=== PATIENT | male | born 1965 | race Caucasian/White ===

== ENCOUNTER 2016-09-05 11:03 | Emergency (ER) | payer OTHER ==
--- NOTE | 2016-09-05 12:42 | DIAGNOSTIC IMAGING REPORT ---
PROCEDURE: XR CHEST 2 VIEW INDICATION: SHORTNESS OF BREATH TECHNIQUE: PA and lateral view. COMPARISON: None. FINDINGS: Lungs are clear. Cardiovascular structures are normal. Mild degenerative changes of the spine. IMPRESSION: 1. Negative chest.
--- NOTE | 2016-09-05 13:32 | ED CLINICAL REPORT ---
Clinical Report - Physicians/Mid Levels [facility] [address], [place] [address] 09/05/2016 11:06 Patient: PAVAN GOODRICH Time Seen: 11:12. Arrived- By private vehicle. Historian- patient. HISTORY OF PRESENT ILLNESS Chief Complaint: DYSPNEA and HISTORY OF ASTHMA. This started about 1 year ago intermittently, worse / exacerbated for the past several weeks and is still present. It was gradual in onset and has been waxing/waning. The dyspnea is described as moderate. The dyspnea is worsened by walking and exertion and is improved by rest (inhalers help, but he has run out; his symptoms were improved when he lived in a atmospheric drier tender climate (in [place] The patient has had a mild cough productive of yellow sputum . No blood tinged sputum or frankly bloody sputum. He has had scant amounts of sputum and wheezing. No fever, chills, calf pain, foot swelling or orthopnea. No paroxysmal nocturnal dyspnea. (Pt sts last year at about this time he began having wheezing, seen at [facility] and was told to get a chest x ray, no meds or diagnosis given, pt never got x ray, sts over the winter it went away and now has returned again with the summer. Pt is in no resp distress)). Similar symptoms previously: Chronically. Recent medical care: The patient was seen recently in a clinic. Seen for similar symptoms. REVIEW OF SYSTEMS No muscle aches, sore throat, nasal discharge, sinus drainage or nausea. No vomiting, abdominal pain, diarrhea, black stools or bloody stools. No headache, fainting episodes, difficulty with urination, excessive urination or skin rash. No enlarged lymph nodes. All systems otherwise negative, except as recorded above. PAST HISTORY Asthma suspected. PCP: [facility] K[facility] (Dr Wei). No history of renal failure, congestive heart failure, deep venous thrombosis or pulmonary embolism. Gastroesophageal reflux. Anxiety. Depression. Surgeries: Appendectomy. Medications: Zantac Oral. TraZODone HCl Oral. Citalopram Hydrobromide Oral. Allergies: No Known Drug Allergy. SOCIAL HISTORY Smoker- current status unknown. History of drug use takes marijuana po; He has a long history of cocaine and other drug use (no heroin) - but none for over 1 year: marijuana. Is a recovering addict. ADDITIONAL NOTES The nursing notes have been reviewed. PHYSICAL EXAM Vital Signs: 09/05/2016 11:15 BP: 157/91. HR: 65. RR: 18. O2 saturation: 96%. Temp: 97.5 F. Appearance: Alert. No acute distress. Eyes: Eyes normal inspection. No pale conjunctivae or scleral icterus. ENT: Pharynx normal. Uvula midline. No pharyngeal erythema. Neck: Normal inspection. No jugular venous distention. Neck supple. CVS: Normal heart rate and rhythm. Heart sounds normal. Pulses normal. Respiratory: No respiratory distress. Expiratory moderate bilateral wheezes present. No retractions, decreased air movement, prolonged expiration, splinting or rales. No rhonchi. Abdomen: Soft and nontender. No organomegaly. Obese. Back: Normal inspection. Skin: Skin warm and dry. Normal skin color. No rash. Normal skin turgor. Extremities: Extremities exhibit normal ROM. No calf tenderness. No lower extremity edema. Neuro: Oriented X 3. No motor deficit. LABS, X-RAYS, AND EKG EKG: EKG time: (11:41). Normal sinus rhythm. Rate: 60. Normal P waves. Normal TRIP. Normal QRS complex. Normal axis. Left axis deviation. Non-specific ST segment / T wave abnormalities. Rhythm Strip #1: Normal sinus rhythm. Regular rhythm. Narrow QRS complexes. No ectopy. Chest X-ray: No acute disease. Normal lung markings present. Normal heart size. Mediastinum normal. No infiltrate. Views: PA and lateral. Technique: good. The X-rays were interpreted contemporaneously by me. Laboratory Tests: UA-Culture if indicated: (MANAV: 09/05/2016 13:10) ( MsgRcvd 09/05/2016 13:34) Final results Test Result Flag Units (Reference) URINE COLOR YELLOW URINE APPEARANCE CLEAR URINE GLUCOSE NEGATIVE (NEGATIVE) URINE BILIRUBIN NEGATIVE (NEGATIVE) URINE KETONE TRACE (NEGATIVE) URINE SPECIFIC GRAVITY >= 1.030 (1.010-1.030) URINE PH 6.0 (5.0-8.0) URINE PROTEIN TRACE (NEGATIVE) URINE UROBILINOGEN 0.2 EU/dL (0.2-1.0) URINE NITRITE NEGATIVE (NEGATIVE) URINE BLOOD NEGATIVE (NEGATIVE) URINE LEUK ESTERASE NEGATIVE (NEGATIVE) URINE RBC NONE SEEN rbc/hpf (0-1) URINE WBC 1-3 wbc/hpf (0-1) URINE EPITHELIAL CELLS 0-1 EPI/hpf (0-5) URINE BACTERIA FEW (1+) (NONE SEEN) URINE COMMENT CULT NOT INDICATED URINE CULTURES ARE SET-UP BASED ON THE FOLLOWING CRITERIA:POSITIVE NITRITEPOSITIVE LEUKOCYTE ESTERASEGREATER THAN 10 WHITE BLOOD CELLSMODERATE (2+) OR GREATER BACTERIA CBC w Diff: (MANAV: 09/05/2016 11:45) ( MsgRcvd 09/05/2016 11:58) Final results Test Result Flag Units (Reference) WHITE BLOOD COUNT 9.8 K/uL (4.5-11.5) RED BLOOD COUNT 5.65 M/uL (4.50-5.90) HEMOGLOBIN 16.5 gm/dL (13.5-17.5) HEMATOCRIT 48.1 % (41.0-53.0) MEAN CELL VOLUME 85 fL (80-100) MEAN CORPUSCULAR HGB 29 pg (26-34) MEAN CORPUSCULAR HGB CONC 34 g/dL (31-37) RED CELL DISTRIBUTION WIDTH 13.1 % (11.6-14.8) PLATELET COUNT 224 K/uL (150-400) NEUTROPHIL % 55.2 % (50-75) LYMPH % 21.9 L % (25-40) MONO % 5.7 % (3-14) EOSINOPHIL % 16.3 H % (0-4) BASOPHIL % 0.9 % (0-2) PT with INR: (MANAV: 09/05/2016 11:45) ( MsgRcvd 09/05/2016 12:03) Final results Test Result Flag Units (Reference) INR 1.0 (0.8-1.2) Low Intensity Therapy: INR 1.5-2.0 PT range 18.5-23.1Mod.Intensity Therapy: INR 2.0-3.0 PT range 23.1-31.5High Intensity Therapy: INR 2.5-3.5 PT range 27.4-35.5High Intensity Therapy 2: INR 3.0-4.0 PT range 31.5-39.3 Urine Drug Screen: (MANAV: 09/05/2016 13:10) ( [facility] [place]:39) Final results Test Result Flag Units (Reference) AMPHETAMINE/METHAMPHETAMINE NEGATIVE (NEGATIVE) BARBITURATE NEGATIVE (NEGATIVE) BENZODIAZEPINE NEGATIVE (NEGATIVE) CANNABINOID POSITIVE H (NEGATIVE) COCAINE NEGATIVE (NEGATIVE) ECSTASY POSITIVE H (NEGATIVE) METHADONE NEGATIVE (NEGATIVE) OPIATE NEGATIVE (NEGATIVE) The urine drug screen is a qualitative screening test fordrug overdose and abuse. All screen results should beconsidered as presumptive.Drugs screened for are as follows:BenzodiazepinesCocaineAmphetamines/MetamphetaminesTHC (Tetrahydrocannabinol)OpiatesBarbituratesEcstasyMethadonePositive results are unconfirmed. For confirmation, notifythe lab for the specimen to be sent to the reference lab.All confirmations must be performed by a differentmethodology.The ingestion of natural herbal and plant productscontaining Ephedra/Ephedra metabolites can produce in urineone or more substances capable of cross reacting withamphetamine/methamphetamine immunoassays. These testsprovide a preliminary result only. A more specificalternative chemical method must be used to obtain aconfirmed analytical result. BNP: (MANAV: 09/05/2016 11:45) ( [facility] [place] 09/05/2016 12:23) Final results Test Result Flag Units (Reference) B-TYPE NATRIURETIC PEPTIDE 11.4 pg/ml (5-100) CHEM 13 PANEL: (MANAV: 09/05/2016 11:45) ( [facility] [place] 09/05/2016 12:40) Final results Test Result Flag Units (Reference) GLUCOSE 100 mg/dL (70-110) BUN 22 H mg/dL (7-18) CREATININE 1.1 mg/dL (0.6-1.3) Estimated GFR >60 mL/min Estimated GFR- >60 mL/min Note: Persistent reduction over 3 months in eGFR<60 mL/min/1.73 m2 defines CKD. Patients with eGFR values>=60 mL/min/1.73 m2 may also have CKD if evidence ofpersistent proteinuria. Additional information may be foundat www.kidney.org. SODIUM 142 mmol/L (136-145) POTASSIUM 4.5 mmol/L (3.5-5.1) CHLORIDE 106 mmol/L (98-107) CARBON DIOXIDE 25 mmol/L (21-32) CALCIUM 8.7 mg/dL (8.5-10.1) TOTAL PROTEIN 8.0 g/dL (6.4-8.2) ALBUMIN 4.3 g/dL (3.3-5.0) BILIRUBIN, TOTAL 0.6 mg/dL (0.0-1.0) ALKALINE PHOSPHATASE 53 U/L (46-116) AST (SGOT) 28 U/L (15-37) ALT (SGPT) 41 U/L (12-78) MAGNESIUM 1.9 mg/dL (1.8-2.4) AMYLASE 47 U/L (25-115) CPK 700 H U/L (24-260) TROPONIN I <0.05 ng/mL (0.00-1.5) TROPONIN REFERENCE RANGE:<0.1 NEGATIVE0.1-1.5 INDETERMINANT>1.5 POSITIVE CK-MB 4.7 H ng/mL (0.5-3.2) %CKMB 0.7 % (0.0-4.0) . Pulse Oximetry: 09/05/2016 11:15 O2 saturation: 96%. (FIO2 - room air). Interpretation: normal. PROGRESS AND PROCEDURES Course of Care: Normal Saline 1 liter IVPB given. ASA 325 mg PO given. Solu-Medrol 125 mg IVP given. DuoNeb nebulizer treatment #1 given. 13:23 09/05/16. Patient is stable. Physical exam findings are improved. Symptoms much better. Patient/family counseled. Prior records not ordered. Disposition: Discharged. Condition: stable and improved. CLINICAL IMPRESSION Moderate persistent asthma with an acute exacerbation. No status asthmaticus. Chronic substance abuse- marijuana with anxiety. Possible COPD. INSTRUCTIONS Do not work for two days. Warnings: Further evaluation is necessary. It is very important to follow up with a physician. GENERAL WARNINGS: Return or contact your physician immediately if your condition worsens or changes unexpectedly, if not improving as expected, or if other problems arise. Prescription Medications: Albuterol HFA oral inhaler: inhale 1 to 2 puffs every four to six hours as needed for difficulty breathing. Dispense one (1) unit. No refills. Prednisone 20 mg: take 3 orally every day for 4 days. Dispense sufficient quantity. No refills. OTC Medications: Acetaminophen (available over the counter): take according to label instructions. Follow-up: Screening today revealed the patient's blood pressure to be in the hypertensive range. The patient should follow up with a primary care provider for blood pressure management. Follow-up with: [facility], , , [address], [facility] [place], [address] Follow up in about two days. (Electronically signed by Santos Archer DO 09/05/2016 15:42)
--- NOTE | 2016-09-05 13:32 | ED ORDER SUMMARY ---
..... Patient: PAVAN GOODRICH OrderSheet [facility] VisitID: [id number] [address] [place] [address] 51y, M Registration Date/Time: 09/05/2016 ORDER SHEET Weight: 118.8 kg Allergies: No Known Drug Allergy GENERAL ORDERS: Chest 2V Urgent (09/05/2016 PHutchinson DO) (Ack 11:30 OHgiancarlonandez) (12:06 Meryl) Special Education Aide (Continuous) (09/05/2016 PHutchinson DO) (Ack 11:30 OHernandez) (11:40 JDeElena R.N.) UA-Culture if indicated Urgent (09/05/2016 PHutchinson DO) (Ack 11:30 OHgiancarlonandez) Cardiac Panel Stat (09/05/2016 PHutchinson DO) (Ack 11:30 OHgiancarlonandez) (11:47 EBonham) BNP Urgent (09/05/2016 PHutchinson DO) (Ack 11:30 OHernandez) (11:47 EBonham) Amylase Urgent (09/05/2016 PHutchinson DO) (Ack 11:30 OHernandez) (11:47 EBonham) PT with INR Urgent (09/05/2016 PHutchinson DO) (Ack 11:30 OHernandez) (11:47 EBonham) Oxygen (2 L/min) (NC) (09/05/2016 PHutchinson DO) (Ack 11:30 OHernandez) (11:40 JDeElena R.N.) Pulse oximeter (09/05/2016 PHutchinson DO) (Ack 11:30 OHernandez) (11:40 JDeElena R.N.) EKG - ER Stat (09/05/2016 PHutchinson DO) (Ack 11:30 OHernandez) (11:40 JDeElena R.N.) Vitals (09/05/2016 PHutchinson DO) (Ack 11:30 OHernandez) (11:41 JDeElena R.N.) Urine Drug Screen Urgent (12:47 09/05/2016 [facility]) (Ack 13:15 Vince) MEDICATION ORDERS: DuoNeb Neb Tx 1 unit dose (NOW) (11:27 09/05/2016 [facility]) (Ack 11:40 JDeElena R.N.) (11:45 JDeElena R.N.) Aspirin PO 325 mg (NOW) (11:28 09/05/2016 [facility]) (11:40 JDeElena R.N.) IV FLUIDS: IV Saline Lock (11:28 09/05/2016 [facility]) (Ack 11:40 JDeElena R.N.) (11:46 JDeElena R.N.) Solu-MEDROL IV 125 mg (NOW) (11:32 09/05/2016 [facility]) (Ack 11:40 JDeElena R.N.) (11:45 JDeElena R.N.) Zofran IV 4 mg (NOW) (11:46 09/05/2016 JDeElena R.N. verbal order read back to [facility]) (11:46 JDeElena R.N.) ORDER SHEET NOTES: [Electronically signed by Nneka Ortiz (13:48 09/05/2016)] [Electronically signed by Santos Archer DO (15:42 09/05/2016)] [Electronically locked/signed by Nneka Ortiz (13:48 09/05/2016)]
--- NOTE | 2016-09-05 13:32 | ED NURSING NOTES ---
Clinical Report - Nurses [facility] [address] [place] [address] 09/05/2016 11:06 Patient: PAVAN GOODRICH TRIAGE Triage time 1110. Acuity: LEVEL 3. Chief Complaint: WHEEZING. Alert. No acute distress. --11:19 Nneka Ortiz 11:15 09/05/16. BP: 157/91. HR: 65. RR: 18. O2 saturation: 96%. Temp: 97.5 F. Pain level now 0/10. --11:19 Nneka Ortiz. Weight: 118.8 kg. Height/Length: 72 inches. BMI: 35.6. --11:15 Nneka Ortiz. Medications Citalopram Hydrobromide Oral. --11:17 Nneka Ortiz TraZODone HCl Oral. --11:17 Nneka Ortiz Zantac Oral. --11:17 Nneka Ortiz. Allergies No Known Drug Allergy. --11:17 Nneka Ortiz. History Arrived by private vehicle. Historian: patient. Accompanied by family. Does not recall events relating to the onset. (1 years ago). ( Pt sts last year at about this time he began having wheezing, seen at [facility] and was told to get a chest x ray, no meds or diagnosis given, pt never got x ray, sts over the winter it went away and now has returned again with the summer. Pt is in no resp distress). 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 SOCIAL HX: Smoker- current status unknown. Occasional alcohol use. History of heavy drug use: marijuana. FALL RISK ASSESSMENT: Fall risk assessment completed. No fall risk identified. NUTRITIONAL RISK ASSESSMENT: The nutritional risk assessment revealed no deficiencies. FUNCTIONAL ASSESSMENT: Functional assessment: no impairments noted. LEARNING NEEDS ASSESSMENT: The learning needs assessment revealed no barriers. --11:19 Nneka Ortiz. PROBLEMS: Gastroesophageal Reflux Disease. Anxiety Reaction. Depression. --11:18 Nneka Ortiz. ADDITIONAL SURGERIES: Appendectomy. --11:18 Nneka Ortiz. Interventions ID band on patient. To treatment room. --11:19 Nneka Ortiz. PHYSICAL ASSESSMENT Ambulatory to room. GENERAL / NEURO / PSYCH: Alert. Oriented X 4. Appears in no acute distress. Appears anxious. HEENT: Mucous membranes are pink. RESPIRATORY: No respiratory distress. Respirations not labored. The patient can speak in full sentences. CVS: Normal sinus rhythm noted. Capillary refill less than 2 seconds. GI / : Abdomen soft and nontender. Bowel sounds within normal limits. SKIN: Skin is warm and dry. Normal skin turgor. --11:20 Nneka Ortiz. NURSING PROGRESS NOTES Reassurance given. Two patient identifiers checked. Call light placed in reach. Bed placed in lowest position. Brakes of bed on. Patient ready for evaluation- chart flagged. --11:20 Nneka Ortiz Patient waiting for evaluation. --11:20 Nneka Ortiz 11:40 09/05/2016 Aspirin PO Tablets 325 mg given. Allergies verified and confirmed 5 rights. --11:40 Chito Hua R.N. 11:45 09/05/2016 Duoneb (Ipratropium-Albuterol) Neb TX Nebulizer 1 unit dose given. Given by the nurse. Allergies verified and confirmed 5 rights. --11:45 Chito Hua R.N. 11:45 09/05/2016 Site #1 started via IV in the right antecubital space with an 20g angiocath, with aseptic technique and good blood return; one attempt. Blood drawn: rainbow set. Labeled in the presence of the patient and sent to the lab. Saline lock flushed with 10 mL saline. --11:45 Chito Hua R.N. 11:45 09/05/2016 SOLU-MEDROL (MethylPREDNISolone Sodium Succ) IVP 125 mg given over 2 minute(s) via site #1. Allergies verified and confirmed 5 rights. IV patency established. IV site checked: no pain, redness, or swelling. IV flushed thoroughly pre- and post-medication administration. IVP given by RN. --11:45 Chito Hua R.N. 11:46 09/05/2016 Zofran (Ondansetron HCl) IVP 4 mg given over 2 minute(s) via site #1. Allergies verified and confirmed 5 rights. IV patency established. IV site checked: no pain, redness, or swelling. IV flushed thoroughly pre- and post-medication administration. IVP given by RN. --11:46 Chito Hua R.N. Monitoring of patient in place. Reassessment after medication administered. He reports no complaints, he is calm and he has had no adverse reaction. Overall patient status is the same- he states feels better. Call light placed in reach. Side rails up x 2. Bed placed in lowest position. Brakes of bed on. Patient waiting for lab and radiology results. --12:14 Nneka Ortiz 12:14 09/05/16. BP: 129/80. HR: 53. RR: 18. O2 saturation: 95%. --12:14 Nneka Ortiz. DISPOSITION / DISCHARGE Departure time: 1345. Condition at departure: improved and stable. No learning barriers present. Discharge instructions provided and reviewed with the patient. Reviewed medication(s). Patient verbalized understanding. Written instructions provided in [place]. The patient was discharged by the physician. He was discharged home and accompanied by parent. He left the Emergency Department ambulatory and via private vehicle. Parent driving. --13:47 Nneka Ortiz 13:46 09/05/16. BP: 131/67. HR: 66. RR: 18. O2 saturation: 95%. --13:47 Nneka Ortiz 13:47 09/05/2016 Site #1 removed upon discharge. Pressure dressing applied. --13:47 Nneka Ortiz. Locked/Released at 09/05/2016 13:48 by Nneka Ortiz,
--- NOTE | 2016-09-05 13:32 | ED CLINICAL REPORT ---
Clinical Report - Physicians/Mid Levels [facility] [address], [place] [address] 09/05/2016 11:06 Patient: PAVAN GOODRICH Time Seen: 11:12. Arrived- By private vehicle. Historian- patient. HISTORY OF PRESENT ILLNESS Chief Complaint: DYSPNEA and HISTORY OF ASTHMA. This started about 1 year ago intermittently, worse / exacerbated for the past several weeks and is still present. It was gradual in onset and has been waxing/waning. The dyspnea is described as moderate. The dyspnea is worsened by walking and exertion and is improved by rest (inhalers help, but he has run out; his symptoms were improved when [place] lived in a [place] The patient has had a mild cough productive of yellow sputum . No blood tinged sputum or frankly bloody sputum. He has had scant amounts of sputum and wheezing. No fever, chills, calf pain, foot swelling or orthopnea. No paroxysmal nocturnal dyspnea. (Pt sts last year at about this time he began having wheezing, seen at [facility] and was told to get a chest x ray, no meds or diagnosis given, pt never got x ray, sts over the winter it went away and now has returned again with the summer. Pt is in no resp distress)). Similar symptoms previously: Chronically. Recent medical care: The patient was seen recently in a clinic. Seen for similar symptoms. REVIEW OF SYSTEMS No muscle aches, sore throat, nasal discharge, sinus drainage or nausea. No vomiting, abdominal pain, diarrhea, black stools or bloody stools. No headache, fainting episodes, difficulty with urination, excessive urination or skin rash. No enlarged lymph nodes. All systems otherwise negative, except as recorded above. PAST HISTORY Asthma suspected. PCP: [facility] Khadar (Dr Wei). No history of renal failure, congestive heart failure, deep venous thrombosis or pulmonary embolism. Gastroesophageal reflux. Anxiety. Depression. Surgeries: Appendectomy. Medications: Zantac Oral. TraZODone HCl Oral. Citalopram Hydrobromide Oral. Allergies: No Known Drug Allergy. SOCIAL HISTORY Smoker- current status unknown. History of drug use takes marijuana po; He has a long history of cocaine and other drug use (no heroin) - but none for over 1 year: marijuana. Is a recovering addict. ADDITIONAL NOTES The nursing notes have been reviewed. PHYSICAL EXAM Vital Signs: 09/05/2016 11:15 BP: 157/91. HR: 65. RR: 18. O2 saturation: 96%. Temp: 97.5 F. Appearance: Alert. No acute distress. Eyes: Eyes normal inspection. No pale conjunctivae or scleral icterus. ENT: Pharynx normal. Uvula midline. No pharyngeal erythema. Neck: Normal inspection. No jugular venous distention. Neck supple. CVS: Normal heart rate and rhythm. Heart sounds normal. Pulses normal. Respiratory: No respiratory distress. Expiratory moderate bilateral wheezes present. No retractions, decreased air movement, prolonged expiration, splinting or rales. No rhonchi. Abdomen: Soft and nontender. No organomegaly. Obese. Back: Normal inspection. Skin: Skin warm and dry. Normal skin color. No rash. Normal skin turgor. Extremities: Extremities exhibit normal ROM. No calf tenderness. No lower extremity edema. Neuro: Oriented X 3. No motor deficit. LABS, X-RAYS, AND EKG EKG: EKG time: (11:41). Normal sinus rhythm. Rate: 60. Normal P waves. Normal TRIP. Normal QRS complex. Normal axis. Left axis deviation. Non-specific ST segment / T wave abnormalities. Rhythm Strip #1: Normal sinus rhythm. Regular rhythm. Narrow QRS complexes. No ectopy. Chest X-ray: No acute disease. Normal lung markings present. Normal heart size. Mediastinum normal. No infiltrate. Views: PA and lateral. Technique: good. The X-rays were interpreted contemporaneously by me. Laboratory Tests: UA-Culture if indicated: (MANAV: 09/05/2016 13:10) ( MsgRcvd 09/05/2016 13:34) Final results Test Result Flag Units (Reference) URINE COLOR YELLOW URINE APPEARANCE CLEAR URINE GLUCOSE NEGATIVE (NEGATIVE) URINE BILIRUBIN NEGATIVE (NEGATIVE) URINE KETONE TRACE (NEGATIVE) URINE SPECIFIC GRAVITY >= 1.030 (1.010-1.030) URINE PH 6.0 (5.0-8.0) URINE PROTEIN TRACE (NEGATIVE) URINE UROBILINOGEN 0.2 EU/dL (0.2-1.0) URINE NITRITE NEGATIVE (NEGATIVE) URINE BLOOD NEGATIVE (NEGATIVE) URINE LEUK ESTERASE NEGATIVE (NEGATIVE) URINE RBC NONE SEEN rbc/hpf (0-1) URINE WBC 1-3 wbc/hpf (0-1) URINE EPITHELIAL CELLS 0-1 EPI/hpf (0-5) URINE BACTERIA FEW (1+) (NONE SEEN) URINE COMMENT CULT NOT INDICATED URINE CULTURES ARE SET-UP BASED ON THE FOLLOWING CRITERIA:POSITIVE NITRITEPOSITIVE LEUKOCYTE ESTERASEGREATER THAN 10 WHITE BLOOD CELLSMODERATE (2+) OR GREATER BACTERIA CBC w Diff: (MANAV: 09/05/2016 11:45) ( MsgRcvd 09/05/2016 11:58) Final results Test Result Flag Units (Reference) WHITE BLOOD COUNT 9.8 K/uL (4.5-11.5) RED BLOOD COUNT 5.65 M/uL (4.50-5.90) HEMOGLOBIN 16.5 gm/dL (13.5-17.5) HEMATOCRIT 48.1 % (41.0-53.0) MEAN CELL VOLUME 85 fL (80-100) MEAN CORPUSCULAR HGB 29 pg (26-34) MEAN CORPUSCULAR HGB CONC 34 g/dL (31-37) RED CELL DISTRIBUTION WIDTH 13.1 % (11.6-14.8) PLATELET COUNT 224 K/uL (150-400) NEUTROPHIL % 55.2 % (50-75) LYMPH % 21.9 L % (25-40) MONO % 5.7 % (3-14) EOSINOPHIL % 16.3 H % (0-4) BASOPHIL % 0.9 % (0-2) PT with INR: (MANAV: 09/05/2016 11:45) ( MsgRcvd 09/05/2016 12:03) Final results Test Result Flag Units (Reference) INR 1.0 (0.8-1.2) Low Intensity Therapy: INR 1.5-2.0 PT range 18.5-23.1Mod.Intensity Therapy: INR 2.0-3.0 PT range 23.1-31.5High Intensity Therapy: INR 2.5-3.5 PT range 27.4-35.5High Intensity Therapy 2: INR 3.0-4.0 PT range 31.5-39.3 Urine Drug Screen: (MANAV: 09/05/2016 13:10) ( [facility] 09/05/2016 13:39) Final results Test Result Flag Units (Reference) AMPHETAMINE/METHAMPHETAMINE NEGATIVE (NEGATIVE) BARBITURATE NEGATIVE (NEGATIVE) BENZODIAZEPINE NEGATIVE (NEGATIVE) CANNABINOID POSITIVE H (NEGATIVE) COCAINE NEGATIVE (NEGATIVE) ECSTASY POSITIVE H (NEGATIVE) METHADONE NEGATIVE (NEGATIVE) OPIATE NEGATIVE (NEGATIVE) The urine drug screen is a qualitative screening test fordrug overdose and abuse. All screen results should beconsidered as presumptive.Drugs screened for are as follows:BenzodiazepinesCocaineAmphetamines/MetamphetaminesTHC (Tetrahydrocannabinol)OpiatesBarbituratesEcstasyMethadonePositive results are unconfirmed. For confirmation, notifythe lab for the specimen to be sent to the reference lab.All confirmations must be performed by a differentmethodology.The ingestion of natural herbal and plant productscontaining Ephedra/Ephedra metabolites can produce in urineone or more substances capable of cross reacting withamphetamine/methamphetamine immunoassays. These testsprovide a preliminary result only. A more specificalternative chemical method must be used to obtain aconfirmed analytical result. BNP: (MANAV: 09/05/2016 11:45) ( [facility] 09/05/2016 12:23) Final results Test Result Flag Units (Reference) B-TYPE NATRIURETIC PEPTIDE 11.4 pg/ml (5-100) CHEM 13 PANEL: (MANAV: 09/05/2016 11:45) ( [facility] 09/05/2016 12:40) Final results Test Result Flag Units (Reference) GLUCOSE 100 mg/dL (70-110) BUN 22 H mg/dL (7-18) CREATININE 1.1 mg/dL (0.6-1.3) Estimated GFR >60 mL/min Estimated GFR- >60 mL/min Note: Persistent reduction over 3 months in eGFR<60 mL/min/1.73 m2 defines CKD. Patients with eGFR values>=60 mL/min/1.73 m2 may also have CKD if evidence ofpersistent proteinuria. Additional information may be foundat www.kidney.org. SODIUM 142 mmol/L (136-145) POTASSIUM 4.5 mmol/L (3.5-5.1) CHLORIDE 106 mmol/L (98-107) CARBON DIOXIDE 25 mmol/L (21-32) CALCIUM 8.7 mg/dL (8.5-10.1) TOTAL PROTEIN 8.0 g/dL (6.4-8.2) ALBUMIN 4.3 g/dL (3.3-5.0) BILIRUBIN, TOTAL 0.6 mg/dL (0.0-1.0) ALKALINE PHOSPHATASE 53 U/L (46-116) AST (SGOT) 28 U/L (15-37) ALT (SGPT) 41 U/L (12-78) MAGNESIUM 1.9 mg/dL (1.8-2.4) AMYLASE 47 U/L (25-115) CPK 700 H U/L (24-260) TROPONIN I <0.05 ng/mL (0.00-1.5) TROPONIN REFERENCE RANGE:<0.1 NEGATIVE0.1-1.5 INDETERMINANT>1.5 POSITIVE CK-MB 4.7 H ng/mL (0.5-3.2) %CKMB 0.7 % (0.0-4.0) . Pulse Oximetry: 09/05/2016 11:15 O2 saturation: 96%. (FIO2 - room air). Interpretation: normal. PROGRESS AND PROCEDURES Course of Care: Normal Saline 1 liter IVPB given. ASA 325 mg PO given. Solu-Medrol 125 mg IVP given. DuoNeb nebulizer treatment #1 given. 13:23 09/05/16. Patient is stable. Physical exam findings are improved. Symptoms much better. Patient/family counseled. Prior records not ordered. Disposition: Discharged. Condition: stable and improved. CLINICAL IMPRESSION Moderate persistent asthma with an acute exacerbation. No status asthmaticus. Chronic substance abuse- marijuana with anxiety. Possible COPD. INSTRUCTIONS Do not work for two days. Warnings: Further evaluation is necessary. It is very important to follow up with a physician. GENERAL WARNINGS: Return or contact your physician immediately if your condition worsens or changes unexpectedly, if not improving as expected, or if other problems arise. Prescription Medications: Albuterol HFA oral inhaler: inhale 1 to 2 puffs every four to six hours as needed for difficulty breathing. Dispense one (1) unit. No refills. Prednisone 20 mg: take 3 orally every day for 4 days. Dispense sufficient quantity. No refills. OTC Medications: Acetaminophen (available over the counter): take according to label instructions. Follow-up: Screening today revealed the patient's blood pressure to be in the hypertensive range. The patient should follow up with a primary care provider for blood pressure management. Follow-up with: [facility], , , [address], [facility], [address] Follow up in about two days. (Electronically signed by Santos Archer DO 09/05/2016 15:42)
--- NOTE | 2016-09-05 13:32 | ED ORDER SUMMARY ---
..... Patient: PAVAN GOODRICH OrderSheet Located Within [facility] VisitID: [id number] [address] [place] [address] 51y, M Registration Date/Time: 09/05/2016 ORDER SHEET Weight: 118.8 kg Allergies: No Known Drug Allergy GENERAL ORDERS: Chest 2V Urgent (09/05/2016 PHutchinson DO) (Ack 11:30 OHgiancarlonandez) (12:06 Meryl) Order Builder (Continuous) (09/05/2016 PHutchinson DO) (Ack 11:30 OHernandez) (11:40 JDeElena R.N.) UA-Culture if indicated Urgent (09/05/2016 PHutchinson DO) (Ack 11:30 OHgiancarlonandez) Cardiac Panel Stat (09/05/2016 PHutchinson DO) (Ack 11:30 OHgiancarlonandez) (11:47 EBonham) BNP Urgent (09/05/2016 PHutchinson DO) (Ack 11:30 OHernandez) (11:47 EBonham) Amylase Urgent (09/05/2016 PHutchinson DO) (Ack 11:30 OHernandez) (11:47 EBonham) PT with INR Urgent (09/05/2016 PHutchinson DO) (Ack 11:30 OHernandez) (11:47 EBonham) Oxygen (2 L/min) (NC) (09/05/2016 PHutchinson DO) (Ack 11:30 OHernandez) (11:40 JDeElena R.N.) Pulse oximeter (09/05/2016 PHutchinson DO) (Ack 11:30 OHernandez) (11:40 JDeElena R.N.) EKG - ER Stat (09/05/2016 PHutchinson DO) (Ack 11:30 OHernandez) (11:40 JDeElena R.N.) Vitals (09/05/2016 PHutchinson DO) (Ack 11:30 OHernandez) (11:41 JDeElena R.N.) Urine Drug Screen Urgent (12:47 09/05/2016 [facility]) (Ack 13:15 Vince) MEDICATION ORDERS: DuoNeb Neb Tx 1 unit dose (NOW) (11:27 09/05/2016 [facility]) (Ack 11:40 JDeElena R.N.) (11:45 JDeElena R.N.) Aspirin PO 325 mg (NOW) (11:28 09/05/2016 [facility]) (11:40 JDeElena R.N.) IV FLUIDS: IV Saline Lock (11:28 09/05/2016 [facility]) (Ack 11:40 JDeElena R.N.) (11:46 JDeElena R.N.) Solu-MEDROL IV 125 mg (NOW) (11:32 09/05/2016 [facility]) (Ack 11:40 JDeElena R.N.) (11:45 JDeElena R.N.) Zofran IV 4 mg (NOW) (11:46 09/05/2016 JDeElena R.N. verbal order read back to [facility]) (11:46 JDeElena R.N.) ORDER SHEET NOTES: [Electronically signed by Nneka rOtiz (13:48 09/05/2016)] [Electronically signed by Santos Archer DO (15:42 09/05/2016)] [Electronically locked/signed by Nneka Ortiz (13:48 09/05/2016)]
--- NOTE | 2016-09-05 13:32 | ED NURSING NOTES ---
Clinical Report - Nurses [facility] [address] [place] [address] 09/05/2016 11:06 Patient: PAVAN GOODRICH TRIAGE Triage time 1110. Acuity: LEVEL 3. Chief Complaint: WHEEZING. Alert. No acute distress. --11:19 Nneka Ortiz 11:15 09/05/16. BP: 157/91. HR: 65. RR: 18. O2 saturation: 96%. Temp: 97.5 F. Pain level now 0/10. --11:19 Nneka Ortiz. Weight: 118.8 kg. Height/Length: 72 inches. BMI: 35.6. --11:15 Nneka Ortiz. Medications Citalopram Hydrobromide Oral. --11:17 Nneka Ortiz TraZODone HCl Oral. --11:17 Nneka Ortiz Zantac Oral. --11:17 Nneka Ortiz. Allergies No Known Drug Allergy. --11:17 Nneka Ortiz. History Arrived by private vehicle. Historian: patient. Accompanied by family. Does not recall events relating to the onset. (1 years ago). ( Pt sts last year at about this time he began having wheezing, seen at [facility] and was told to get a chest x ray, no meds or diagnosis given, pt never got x ray, sts over the winter it went away and now has returned again with the summer. Pt is in no resp distress). Treatment FLIGHT DYNAMICIST: None. SOCIAL HX: Smoker- current status unknown. Occasional alcohol use. History of heavy drug use: marijuana. FALL RISK ASSESSMENT: Fall risk assessment completed. No fall risk identified. NUTRITIONAL RISK ASSESSMENT: The nutritional risk assessment revealed no deficiencies. FUNCTIONAL ASSESSMENT: Functional assessment: no impairments noted. LEARNING NEEDS ASSESSMENT: The learning needs assessment revealed no barriers. --11:19 Nneka Ortiz. PROBLEMS: Gastroesophageal Reflux Disease. Anxiety Reaction. Depression. --11:18 Nneka Ortiz. ADDITIONAL SURGERIES: Appendectomy. --11:18 Nneka Ortiz. Interventions ID band on patient. To treatment room. --11:19 Nneka Ortiz. PHYSICAL ASSESSMENT Ambulatory to room. GENERAL / NEURO / PSYCH: Alert. Oriented X 4. Appears in no acute distress. Appears anxious. HEENT: Mucous membranes are pink. RESPIRATORY: No respiratory distress. Respirations not labored. The patient can speak in full sentences. CVS: Normal sinus rhythm noted. Capillary refill less than 2 seconds. GI / : Abdomen soft and nontender. Bowel sounds within normal limits. SKIN: Skin is warm and dry. Normal skin turgor. --11:20 Nneka Ortiz. NURSING PROGRESS NOTES Reassurance given. Two patient identifiers checked. Call light placed in reach. Bed placed in lowest position. Brakes of bed on. Patient ready for evaluation- chart flagged. --11:20 Nneka Ortiz Patient waiting for evaluation. --11:20 Nneka Ortiz 11:40 09/05/2016 Aspirin PO Tablets 325 mg given. Allergies verified and confirmed 5 rights. --11:40 Chito Hua R.N. 11:45 09/05/2016 Duoneb (Ipratropium-Albuterol) Neb TX Nebulizer 1 unit dose given. Given by the nurse. Allergies verified and confirmed 5 rights. --11:45 Chito Hua R.N. 11:45 09/05/2016 Site #1 started via IV in the right antecubital space with an 20g angiocath, with aseptic technique and good blood return; one attempt. Blood drawn: rainbow set. Labeled in the presence of the patient and sent to the lab. Saline lock flushed with 10 mL saline. --11:45 Chito Hua R.N. 11:45 09/05/2016 SOLU-MEDROL (MethylPREDNISolone Sodium Succ) IVP 125 mg given over 2 minute(s) via site #1. Allergies verified and confirmed 5 rights. IV patency established. IV site checked: no pain, redness, or swelling. IV flushed thoroughly pre- and post-medication administration. IVP given by RN. --11:45 Chito Hua R.N. 11:46 09/05/2016 Zofran (Ondansetron HCl) IVP 4 mg given over 2 minute(s) via site #1. Allergies verified and confirmed 5 rights. IV patency established. IV site checked: no pain, redness, or swelling. IV flushed thoroughly pre- and post-medication administration. IVP given by RN. --11:46 Chito Hua R.N. Monitoring of patient in place. Reassessment after medication administered. He reports no complaints, he is calm and he has had no adverse reaction. Overall patient status is the same- he states feels better. Call light placed in reach. Side rails up x 2. Bed placed in lowest position. Brakes of bed on. Patient waiting for lab and radiology results. --12:14 Nneka Ortiz 12:14 09/05/16. BP: 129/80. HR: 53. RR: 18. O2 saturation: 95%. --12:14 Nneka Ortiz. DISPOSITION / DISCHARGE Departure time: 1345. Condition at departure: improved and stable. No learning barriers present. Discharge instructions provided and reviewed with the patient. Reviewed medication(s). Patient verbalized understanding. Written instructions provided in [place]. The patient was discharged by the physician. He was discharged home and accompanied by parent. He left the Emergency Department ambulatory and via private vehicle. Parent driving. --13:47 Nneka Ortiz 13:46 09/05/16. BP: 131/67. HR: 66. RR: 18. O2 saturation: 95%. --13:47 Nneka Ortiz 13:47 09/05/2016 Site #1 removed upon discharge. Pressure dressing applied. --13:47 Nneka Ortiz. Locked/Released at 09/05/2016 13:48 by Nneka Ortiz,
--- NOTE | 2016-09-05 15:43 | ED DISCHARGE INSTRUCTIONS ---
Patient: PAVAN GOODRICH General Instructions [facility] VisitID: [id number] [address] [place] [address] 51y, M Registration Date/Time: 09/05/2016 Moderate persistent asthma with an acute exacerbation. No status asthmaticus. Chronic substance abuse- marijuana with anxiety. INSTRUCTIONS Do not work for two days. Warnings: Further evaluation is necessary. It is very important to follow up with a physician. GENERAL WARNINGS: Return or contact your physician immediately if your condition worsens or changes unexpectedly, if not improving as expected, or if other problems arise. Prescription Medications: Albuterol HFA oral inhaler: inhale 1 to 2 puffs every four to six hours as needed for difficulty breathing. Dispense one (1) unit. No refills. Prednisone 20 mg: take 3 orally every day for 4 days. Dispense sufficient quantity. No refills. OTC Medications: Acetaminophen (available over the counter): take according to label instructions. Follow-up: Screening today revealed the patient's blood pressure to be in the hypertensive range. The patient should follow up with a primary care provider for blood pressure management. Follow-up with: [facility], , , [address], [place], [id number] Follow up in about two days. ADDITIONAL INFORMATION Asthma [Adult] Asthma is a disease where the small air passages within the lung go into spasm and restrict the flow of air. Inflammation and swelling of the airways cause further restriction. During an acute asthma attack, these factors cause difficulty breathing, wheezing, cough and chest tightness. An asthma attack can be triggered by many things. Common triggers include the common cold, bronchitis, pneumonia, irritants such as smoke or pullutants in the air, emotional upset and heavy exercise. Inmany adults with asthma, allergies todust, mold, pollen and animal dander can cause an asthma attack. Skipping doses of daily asthma medicine can also bring on an asthma attack. Asthma can be controlled with proper medicines and decreased exposure to known allergens. Home Care: Take prescribed medicine exactly at the times advised. If you have a hand-held inhaler or aerosol breathing medicine, do not use it more than once every four hours, unless told to do so. (If you need this medicine more than every four hours, you may need to return to the Emergency Room.) If prescribed an antibiotic or prednisone, take all of the medicine even if you are feeling better after a few days. Do not smoke. Avoid being exposed to the smoke of others. Some persons with asthma have worsening of their symptoms when they take aspirin and non-steroidal medicines like ibuprofen (Motrin, Advil) and naproxen (Aleve, Naprosyn). Talk to your doctor if you think this may apply to you. Acetaminophen (Tylenol)should be safe to use. Follow Up with your doctor, or as advised by our staff. Always bring all of your current medicines with you for your doctor to see. If you do not already have one, talk to your doctor about developing a personalized "Asthma Action Plan." [NOTE: A pneumococcal vaccine and yearly flu shot (every fall) are recommended. Ask your doctor about this.] Get Prompt Medical Attention if any of the following occur: Increased wheezing or shortness of breath Need to use your inhalers more often than usual without relief Fever of 100.4F (38C) or higher, or as directed by your healthcare provider Coughing up lots of dark-colored or bloody sputum (mucus) Chest pain with each breath You do not start to improve within 24 hours Call 911 If Any Of The Following Occur : Trouble walking or talking because of shortness of breath If you use a peak flow meter andyou are still in the red zone (less than 50 percent) 15 minutes after using inhaler medication Lips or fingernails turning chavarria or blue Albuterol Sulfate Pressurized inhalation, suspension What is this medicine? ALBUTEROL (al BYOO ter ole) is a bronchodilator. It helps open up the airways in your lungs to make it easier to breathe. This medicine is used to treat and to prevent bronchospasm. How should I use this medicine? This medicine is for inhalation through the mouth. Follow the directions on your prescription label. Take your medicine at regular intervals. Do not use more often than directed. Make sure that you are using your inhaler correctly. Ask you doctor or health care provider if you have any questions. Talk to your faculty head regarding the use of this medicine in children. Special care may be needed. What side effects may I notice from receiving this medicine? Side effects that you should report to your doctor or health home care manager as soon as possible: allergic reactions like skin rash, itching or hives, swelling of the face, lips, or tongue breathing problems chest pain feeling faint or lightheaded, falls high blood pressure irregular heartbeat fever muscle cramps or weakness pain, tingling, numbness in the hands or feet vomiting Side effects that usually do not require medical attention (report to your doctor or health home care manager if they continue or are bothersome): cough difficulty sleeping headache nervousness or trembling stomach upset stuffy or runny nose throat irritation unusual taste What may interact with this medicine? anti-infectives like chloroquine and pentamidine caffeine cisapride diuretics medicines for colds medicines for depression or for emotional or psychotic conditions medicines for weight loss including some herbal products methadone some antibiotics like clarithromycin, erythromycin, levofloxacin, and linezolid some heart medicines steroid hormones like dexamethasone, cortisone, hydrocortisone theophylline thyroid hormones What if I miss a dose? If you miss a dose, use it as soon as you can. If it is almost time for your next dose, use only that dose. Do not use double or extra doses. Where should I keep my medicine? Keep out of the reach of children. Store at room temperature between 15 and 30 degrees C (59 and 86 degrees F). The contents are under pressure and may burst when exposed to heat or flame. Do not freeze. This medicine does not work as well if it is too cold. Throw away any unused medicine after the expiration date. Inhalers need to be thrown away after the labeled number of puffs have been used or by the expiration date; whichever comes first. Ventolin HFA should be thrown away 12 months after removing from foil pouch. Check the instructions that come with your medicine. What should I tell my health care provider before I take this medicine? They need to know if you have any of the following conditions: diabetes heart disease or irregular heartbeat high blood pressure pheochromocytoma seizures thyroid disease an unusual or allergic reaction to albuterol, levalbuterol, sulfites, other medicines, foods, dyes, or preservatives or trying to get breast-feeding What should I watch for while using this medicine? Tell your doctor or health home care manager if your symptoms do not improve. Do not use extra albuterol. If your asthma or bronchitis gets worse while you are using this medicine, call your doctor right away. If your mouth gets dry try chewing sugarless gum or sucking hard candy. Drink water as directed. Prednisone Oral tablet What is this medicine? PREDNISONE (PRED ni sone) is a corticosteroid. It is commonly used to treat inflammation of the skin, joints, lungs, and other organs. Common conditions treated include asthma, allergies, and arthritis. It is also used for other conditions, such as blood disorders and diseases of the adrenal glands. How should I use this medicine? Take this medicine by mouth with a glass of water. Follow the directions on the prescription label. Take this medicine with food. If you are taking this medicine once a day, take it in the morning. Do not take more medicine than you are told to take. Do not suddenly stop taking your medicine because you may develop a severe reaction. Your doctor will tell you how much medicine to take. If your doctor wants you to stop the medicine, the dose may be slowly lowered over time to avoid any side effects. Talk to your faculty head regarding the use of this medicine in children. Special care may be needed. What side effects may I notice from receiving this medicine? Side effects that you should report to your doctor or health home care manager as soon as possible: allergic reactions like skin rash, itching or hives, swelling of the face, lips, or tongue changes in emotions or moods changes in vision depressed mood eye pain fever or chills, cough, sore throat, pain or difficulty passing urine increased thirst swelling of ankles, feet Side effects that usually do not require medical attention (report to your doctor or health home care manager if they continue or are bothersome): confusion, excitement, restlessness headache nausea, vomiting skin problems, acne, thin and shiny skin trouble sleeping weight gain What may interact with this medicine? Do not take this medicine with any of the following medications: metyrapone mifepristone This medicine may also interact with the following medications: aminoglutethimide amphotericin B aspirin and aspirin-like medicines barbiturates certain medicines for diabetes, like glipizide or glyburide cholestyramine cholinesterase inhibitors cyclosporine digoxin diuretics ephedrine female hormones, like estrogens and control pills isoniazid ketoconazole NSAIDS, medicines for pain and inflammation, like ibuprofen or naproxen phenytoin rifampin toxoids vaccines warfarin What if I miss a dose? If you miss a dose, take it as soon as you can. If it is almost time for your next dose, talk to your doctor or health home care manager. You may need to miss a dose or take an extra dose. Do not take double or extra doses without advice. Where should I keep my medicine? Keep out of the reach of children. Store at room temperature between 15 and 30 degrees C (59 and 86 degrees F). Protect from light. Keep container tightly closed. Throw away any unused medicine after the expiration date. What should I tell my health care provider before I take this medicine? They need to know if you have any of these conditions: Colton's syndrome diabetes glaucoma heart disease high blood pressure infection (especially a virus infection such as chickenpox, cold sores, or herpes) kidney disease liver disease mental illness myasthenia gravis osteoporosis seizures stomach or intestine problems thyroid disease an unusual or allergic reaction to lactose, prednisone, other medicines, foods, dyes, or preservatives or trying to get breast-feeding What should I watch for while using this medicine? Visit your doctor or health home care manager for regular checks on your progress. If you are taking this medicine over a prolonged period, carry an identification card with your name and address, the type and dose of your medicine, and your doctor's name and address. This medicine may increase your risk of getting an infection. Tell your doctor or health home care manager if you are around anyone with measles or chickenpox, or if you develop sores or blisters that do not heal properly. If you are going to have surgery, tell your doctor or health home care manager that you have taken this medicine within the last twelve months. Ask your doctor or health home care manager about your diet. You may need to lower the amount of salt you eat. This medicine may affect blood sugar levels. If you have diabetes, check with your doctor or health home care manager before you change your diet or the dose of your diabetic medicine. Acetaminophen Oral tablet What is this medicine? ACETAMINOPHEN (a set a HONG caroline fen) is a pain reliever. It is used to treat mild pain and fever. How should I use this medicine? Take this medicine by mouth with a glass of water. Follow the directions on the package or prescription label. Take your medicine at regular intervals. Do not take your medicine more often than directed. Talk to your faculty head regarding the use of this medicine in children. While this drug may be prescribed for children as young as 6 years of age for selected conditions, precautions do apply. What side effects may I notice from receiving this medicine? Side effects that you should report to your doctor or health home care manager as soon as possible: allergic reactions like skin rash, itching or hives, swelling of the face, lips, or tongue breathing problems fever or sore throat redness, blistering, peeling or loosening of the skin, including inside the mouth trouble passing urine or change in the amount of urine unusual bleeding or bruising unusually weak or tired yellowing of the eyes or skin Side effects that usually do not require medical attention (report to your doctor or health home care manager if they continue or are bothersome): headache nausea, stomach upset What may interact with this medicine? alcohol imatinib isoniazid other medicines with acetaminophen What if I miss a dose? If you miss a dose, take it as soon as you can. If it is almost time for your next dose, take only that dose. Do not take double or extra doses. Where should I keep my medicine? Keep out of reach of children. Store at room temperature between 20 and 25 degrees C (68 and 77 degrees F). Protect from moisture and heat. Throw away any unused medicine after the expiration date. What should I tell my health care provider before I take this medicine? They need to know if you have any of these conditions: if you frequently drink alcohol containing drinks liver disease an unusual or allergic reaction to acetaminophen, other medicines, foods, dyes or preservatives or trying to get breast-feeding What should I watch for while using this medicine? Tell your doctor or health home care manager if the pain lasts more than 10 days (5 days for children), if it gets worse, or if there is a new or different kind of pain. Also, check with your doctor if a fever lasts for more than 3 days. Do not take other medicines that contain acetaminophen with this medicine. Always read labels carefully. If you have questions, ask your doctor or pharmacist. If you take too much acetaminophen get medical help right away. Too much acetaminophen can be very dangerous and cause liver damage. Even if you do not have symptoms, it is important to get help right away. You have been given the following additional information: Asthma, Acute (Adult) Albuterol Sulfate Pressurized inhalation, suspension Prednisone Oral tablet Acetaminophen Oral tablet Do not work for two days. (Electronically signed by Santos Archer DO 09/05/2016 15:42)
--- NOTE | 2016-09-05 15:43 | ED MED RECONCILIATION SUMMARY ---
Patient: PAVAN GOODRICH Medication Reconciliation Report [facility] VisitID: [id number] [address] [place] [address] 51y, M Registration Date/Time: 09/05/2016 Weight: 118.8 kg Height/Length: 72 in. BMI: 35.6 ALLERGIES: No Known Drug Allergy The patient's Home Medications are listed below: THE FOLLOWING MEDICATIONS NEED TO BE RECONCILED: Citalopram Hydrobromide Oral TraZODone HCl Oral Zantac Oral The source(s) of the original Home Medication information: Not obtained. The following Medications were given to the patient in the Emergency Department: Aspirin [PO] PO 325 mg, administered: 09/05/2016 11:40:00 AM Duoneb [Neb Tx] Neb TX 1 unit dose, administered: 09/05/2016 11:45:00 AM SOLU-MEDROL [IVP] IVP 125 mg, administered: 09/05/2016 11:45:00 AM Zofran [IVP] IVP 4 mg, administered: 09/05/2016 11:46:00 AM The following Medications were prescribed to the patient: Acetaminophen (available over the counter): take according to label instructions. -- Santos Archer DO Albuterol HFA oral inhaler: inhale 1 to 2 puffs every four to six hours as needed for difficulty breathing. Dispense one (1) unit. No refills. -- Santos Archer DO Prednisone 20 mg: take 3 orally every day for 4 days. Dispense sufficient quantity. No refills. -- Santos Archer DO
--- NOTE | 2016-09-05 15:43 | ED MED RECONCILIATION SUMMARY ---
Patient: PAVAN GOODRICH Medication Reconciliation Report Located [facility] VisitID: [id number] [address] [place] [address] 51y, M Registration Date/Time: 09/05/2016 Weight: 118.8 kg Height/Length: 72 in. BMI: 35.6 ALLERGIES: No Known Drug Allergy The patient's Home Medications are listed below: THE FOLLOWING MEDICATIONS NEED TO BE RECONCILED: Citalopram Hydrobromide Oral TraZODone HCl Oral Zantac Oral The source(s) of the original Home Medication information: Not obtained. The following Medications were given to the patient in the Emergency Department: Aspirin [PO] PO 325 mg, administered: 09/05/2016 11:40:00 AM Duoneb [Neb Tx] Neb TX 1 unit dose, administered: 09/05/2016 11:45:00 AM SOLU-MEDROL [IVP] IVP 125 mg, administered: 09/05/2016 11:45:00 AM Zofran [IVP] IVP 4 mg, administered: 09/05/2016 11:46:00 AM The following Medications were prescribed to the patient: Acetaminophen (available over the counter): take according to label instructions. -- Santos Archer DO Albuterol HFA oral inhaler: inhale 1 to 2 puffs every four to six hours as needed for difficulty breathing. Dispense one (1) unit. No refills. -- Santos Archer DO Prednisone 20 mg: take 3 orally every day for 4 days. Dispense sufficient quantity. No refills. -- Santos Archer DO
--- NOTE | 2016-09-05 15:43 | ED MAR SUMMARY ---
..... Medication Administration Record [facility] [address] [place] [address] Patient: PAVAN GOODRICH Visit ID: [id number] 51y, M Weight: 118.8 kg Height/Length: 72 in BMI: 35.6 ALLERGIES: No Known Drug Allergy Given 11:40 09/05/2016 Chito Hua R.N. Medication Administered: ASPIRIN [PO], Dose: 325 mg Tablets PO. Medication Ordered: Aspirin PO 325 mg (NOW). Given 11:45 09/05/2016 Chito Hua R.N. Medication Administered: SOLU-MEDROL [IVP] (METHYLPREDNISOLONE SODIUM SUCC), Dose: 125 mg IVP over 2 minute(s), Site: #1 right AC. Medication Ordered: Solu-MEDROL IV 125 mg (NOW). Given 11:09/05/2016 Chito Hua R.N. Medication Administered: DUONEB [NEB TX] (IPRATROPIUM-ALBUTEROL), Dose: 1 unit dose Nebulizer Neb TX. Medication Ordered: DuoNeb Neb Tx 1 unit dose (NOW). Given 11:46 09/05/2016 Chito Hua R.N. Medication Administered: ZOFRAN [IVP] (ONDANSETRON HCL), Dose: 4 mg IVP over 2 minute(s), Site: #1 right AC. Medication Ordered: Zofran IV 4 mg (NOW).
--- NOTE | 2016-09-05 15:43 | ED DISCHARGE INSTRUCTIONS ---
Patient: PAVAN GOODRICH General Instructions [facility] VisitID: [id number] [address] [place] [address] 51y, M Registration Date/Time: 09/05/2016 Moderate persistent asthma with an acute exacerbation. No status asthmaticus. Chronic substance abuse- marijuana with anxiety. INSTRUCTIONS Do not work for two days. Warnings: Further evaluation is necessary. It is very important to follow up with a physician. GENERAL WARNINGS: Return or contact your physician immediately if your condition worsens or changes unexpectedly, if not improving as expected, or if other problems arise. Prescription Medications: Albuterol HFA oral inhaler: inhale 1 to 2 puffs every four to six hours as needed for difficulty breathing. Dispense one (1) unit. No refills. Prednisone 20 mg: take 3 orally every day for 4 days. Dispense sufficient quantity. No refills. OTC Medications: Acetaminophen (available over the counter): take according to label instructions. Follow-up: Screening today revealed the patient's blood pressure to be in the hypertensive range. The patient should follow up with a primary care provider for blood pressure management. Follow-up with: [facility], , , [address], [place], [id number] Follow up in about two days. ADDITIONAL INFORMATION Asthma [Adult] Asthma is a disease where the small air passages within the lung go into spasm and restrict the flow of air. Inflammation and swelling of the airways cause further restriction. During an acute asthma attack, these factors cause difficulty breathing, wheezing, cough and chest tightness. An asthma attack can be triggered by many things. Common triggers include the common cold, bronchitis, pneumonia, irritants such as smoke or pullutants in the air, emotional upset and heavy exercise. Inmany adults with asthma, allergies todust, mold, pollen and animal dander can cause an asthma attack. Skipping doses of daily asthma medicine can also bring on an asthma attack. Asthma can be controlled with proper medicines and decreased exposure to known allergens. Home Care: Take prescribed medicine exactly at the times advised. If you have a hand-held inhaler or aerosol breathing medicine, do not use it more than once every four hours, unless told to do so. (If you need this medicine more than every four hours, you may need to return to the Emergency Room.) If prescribed an antibiotic or prednisone, take all of the medicine even if you are feeling better after a few days. Do not smoke. Avoid being exposed to the smoke of others. Some persons with asthma have worsening of their symptoms when they take aspirin and non-steroidal medicines like ibuprofen (Motrin, Advil) and naproxen (Aleve, Naprosyn). Talk to your doctor if you think this may apply to you. Acetaminophen (Tylenol)should be safe to use. Follow Up with your doctor, or as advised by our staff. Always bring all of your current medicines with you for your doctor to see. If you do not already have one, talk to your doctor about developing a personalized "Asthma Action Plan." [NOTE: A pneumococcal vaccine and yearly flu shot (every fall) are recommended. Ask your doctor about this.] Get Prompt Medical Attention if any of the following occur: Increased wheezing or shortness of breath Need to use your inhalers more often than usual without relief Fever of 100.4F (38C) or higher, or as directed by your healthcare provider Coughing up lots of dark-colored or bloody sputum (mucus) Chest pain with each breath You do not start to improve within 24 hours Call 911 If Any Of The Following Occur : Trouble walking or talking because of shortness of breath If you use a peak flow meter andyou are still in the red zone (less than 50 percent) 15 minutes after using inhaler medication Lips or fingernails turning chavarria or blue Albuterol Sulfate Pressurized inhalation, suspension What is this medicine? ALBUTEROL (al BYOO ter ole) is a bronchodilator. It helps open up the airways in your lungs to make it easier to breathe. This medicine is used to treat and to prevent bronchospasm. How should I use this medicine? This medicine is for inhalation through the mouth. Follow the directions on your prescription label. Take your medicine at regular intervals. Do not use more often than directed. Make sure that you are using your inhaler correctly. Ask you doctor or health care provider if you have any questions. Talk to your research dairy farm supervisor regarding the use of this medicine in children. Special care may be needed. What side effects may I notice from receiving this medicine? Side effects that you should report to your doctor or health home care specialist as soon as possible: allergic reactions like skin rash, itching or hives, swelling of the face, lips, or tongue breathing problems chest pain feeling faint or lightheaded, falls high blood pressure irregular heartbeat fever muscle cramps or weakness pain, tingling, numbness in the hands or feet vomiting Side effects that usually do not require medical attention (report to your doctor or health home care specialist if they continue or are bothersome): cough difficulty sleeping headache nervousness or trembling stomach upset stuffy or runny nose throat irritation unusual taste What may interact with this medicine? anti-infectives like chloroquine and pentamidine caffeine cisapride diuretics medicines for colds medicines for depression or for emotional or psychotic conditions medicines for weight loss including some herbal products methadone some antibiotics like clarithromycin, erythromycin, levofloxacin, and linezolid some heart medicines steroid hormones like dexamethasone, cortisone, hydrocortisone theophylline thyroid hormones What if I miss a dose? If you miss a dose, use it as soon as you can. If it is almost time for your next dose, use only that dose. Do not use double or extra doses. Where should I keep my medicine? Keep out of the reach of children. Store at room temperature between 15 and 30 degrees C (59 and 86 degrees F). The contents are under pressure and may burst when exposed to heat or flame. Do not freeze. This medicine does not work as well if it is too cold. Throw away any unused medicine after the expiration date. Inhalers need to be thrown away after the labeled number of puffs have been used or by the expiration date; whichever comes first. Ventolin HFA should be thrown away 12 months after removing from foil pouch. Check the instructions that come with your medicine. What should I tell my health care provider before I take this medicine? They need to know if you have any of the following conditions: diabetes heart disease or irregular heartbeat high blood pressure pheochromocytoma seizures thyroid disease an unusual or allergic reaction to albuterol, levalbuterol, sulfites, other medicines, foods, dyes, or preservatives or trying to get breast-feeding What should I watch for while using this medicine? Tell your doctor or health home care specialist if your symptoms do not improve. Do not use extra albuterol. If your asthma or bronchitis gets worse while you are using this medicine, call your doctor right away. If your mouth gets dry try chewing sugarless gum or sucking hard candy. Drink water as directed. Prednisone Oral tablet What is this medicine? PREDNISONE (PRED ni sone) is a corticosteroid. It is commonly used to treat inflammation of the skin, joints, lungs, and other organs. Common conditions treated include asthma, allergies, and arthritis. It is also used for other conditions, such as blood disorders and diseases of the adrenal glands. How should I use this medicine? Take this medicine by mouth with a glass of water. Follow the directions on the prescription label. Take this medicine with food. If you are taking this medicine once a day, take it in the morning. Do not take more medicine than you are told to take. Do not suddenly stop taking your medicine because you may develop a severe reaction. Your doctor will tell you how much medicine to take. If your doctor wants you to stop the medicine, the dose may be slowly lowered over time to avoid any side effects. Talk to your research dairy farm supervisor regarding the use of this medicine in children. Special care may be needed. What side effects may I notice from receiving this medicine? Side effects that you should report to your doctor or health home care specialist as soon as possible: allergic reactions like skin rash, itching or hives, swelling of the face, lips, or tongue changes in emotions or moods changes in vision depressed mood eye pain fever or chills, cough, sore throat, pain or difficulty passing urine increased thirst swelling of ankles, feet Side effects that usually do not require medical attention (report to your doctor or health home care specialist if they continue or are bothersome): confusion, excitement, restlessness headache nausea, vomiting skin problems, acne, thin and shiny skin trouble sleeping weight gain What may interact with this medicine? Do not take this medicine with any of the following medications: metyrapone mifepristone This medicine may also interact with the following medications: aminoglutethimide amphotericin B aspirin and aspirin-like medicines barbiturates certain medicines for diabetes, like glipizide or glyburide cholestyramine cholinesterase inhibitors cyclosporine digoxin diuretics ephedrine female hormones, like estrogens and control pills isoniazid ketoconazole NSAIDS, medicines for pain and inflammation, like ibuprofen or naproxen phenytoin rifampin toxoids vaccines warfarin What if I miss a dose? If you miss a dose, take it as soon as you can. If it is almost time for your next dose, talk to your doctor or health home care specialist. You may need to miss a dose or take an extra dose. Do not take double or extra doses without advice. Where should I keep my medicine? Keep out of the reach of children. Store at room temperature between 15 and 30 degrees C (59 and 86 degrees F). Protect from light. Keep container tightly closed. Throw away any unused medicine after the expiration date. What should I tell my health care provider before I take this medicine? They need to know if you have any of these conditions: Colton's syndrome diabetes glaucoma heart disease high blood pressure infection (especially a virus infection such as chickenpox, cold sores, or herpes) kidney disease liver disease mental illness myasthenia gravis osteoporosis seizures stomach or intestine problems thyroid disease an unusual or allergic reaction to lactose, prednisone, other medicines, foods, dyes, or preservatives or trying to get breast-feeding What should I watch for while using this medicine? Visit your doctor or health home care specialist for regular checks on your progress. If you are taking this medicine over a prolonged period, carry an identification card with your name and address, the type and dose of your medicine, and your doctor's name and address. This medicine may increase your risk of getting an infection. Tell your doctor or health home care specialist if you are around anyone with measles or chickenpox, or if you develop sores or blisters that do not heal properly. If you are going to have surgery, tell your doctor or health home care specialist that you have taken this medicine within the last twelve months. Ask your doctor or health home care specialist about your diet. You may need to lower the amount of salt you eat. This medicine may affect blood sugar levels. If you have diabetes, check with your doctor or health home care specialist before you change your diet or the dose of your diabetic medicine. Acetaminophen Oral tablet What is this medicine? ACETAMINOPHEN (a set a HONG caroline fen) is a pain reliever. It is used to treat mild pain and fever. How should I use this medicine? Take this medicine by mouth with a glass of water. Follow the directions on the package or prescription label. Take your medicine at regular intervals. Do not take your medicine more often than directed. Talk to your research dairy farm supervisor regarding the use of this medicine in children. While this drug may be prescribed for children as young as 6 years of age for selected conditions, precautions do apply. What side effects may I notice from receiving this medicine? Side effects that you should report to your doctor or health home care specialist as soon as possible: allergic reactions like skin rash, itching or hives, swelling of the face, lips, or tongue breathing problems fever or sore throat redness, blistering, peeling or loosening of the skin, including inside the mouth trouble passing urine or change in the amount of urine unusual bleeding or bruising unusually weak or tired yellowing of the eyes or skin Side effects that usually do not require medical attention (report to your doctor or health home care specialist if they continue or are bothersome): headache nausea, stomach upset What may interact with this medicine? alcohol imatinib isoniazid other medicines with acetaminophen What if I miss a dose? If you miss a dose, take it as soon as you can. If it is almost time for your next dose, take only that dose. Do not take double or extra doses. Where should I keep my medicine? Keep out of reach of children. Store at room temperature between 20 and 25 degrees C (68 and 77 degrees F). Protect from moisture and heat. Throw away any unused medicine after the expiration date. What should I tell my health care provider before I take this medicine? They need to know if you have any of these conditions: if you frequently drink alcohol containing drinks liver disease an unusual or allergic reaction to acetaminophen, other medicines, foods, dyes or preservatives or trying to get breast-feeding What should I watch for while using this medicine? Tell your doctor or health home care specialist if the pain lasts more than 10 days (5 days for children), if it gets worse, or if there is a new or different kind of pain. Also, check with your doctor if a fever lasts for more than 3 days. Do not take other medicines that contain acetaminophen with this medicine. Always read labels carefully. If you have questions, ask your doctor or pharmacist. If you take too much acetaminophen get medical help right away. Too much acetaminophen can be very dangerous and cause liver damage. Even if you do not have symptoms, it is important to get help right away. You have been given the following additional information: Asthma, Acute (Adult) Albuterol Sulfate Pressurized inhalation, suspension Prednisone Oral tablet Acetaminophen Oral tablet Do not work for two days. (Electronically signed by Santos Archer DO 09/05/2016 15:42)
--- NOTE | 2016-09-05 15:43 | ED MAR SUMMARY ---
..... Medication Administration Record [facility] [address] [place] [address] Patient: PAVAN GOODRICH Visit ID: [id number] 51y, M Weight: 118.8 kg Height/Length: 72 in BMI: 35.6 ALLERGIES: No Known Drug Allergy Given 11:40 09/05/2016 Chito Hua R.N. Medication Administered: ASPIRIN [PO], Dose: 325 mg Tablets PO. Medication Ordered: Aspirin PO 325 mg (NOW). Given 11:45 09/05/2016 Chito Hua R.N. Medication Administered: SOLU-MEDROL [IVP] (METHYLPREDNISOLONE SODIUM SUCC), Dose: 125 mg IVP over 2 minute(s), Site: #1 right AC. Medication Ordered: Solu-MEDROL IV 125 mg (NOW). Given 11:09/05/2016 Chito Hua R.N. Medication Administered: DUONEB [NEB TX] (IPRATROPIUM-ALBUTEROL), Dose: 1 unit dose Nebulizer Neb TX. Medication Ordered: DuoNeb Neb Tx 1 unit dose (NOW). Given 11:46 09/05/2016 Chito Hua R.N. Medication Administered: ZOFRAN [IVP] (ONDANSETRON HCL), Dose: 4 mg IVP over 2 minute(s), Site: #1 right AC. Medication Ordered: Zofran IV 4 mg (NOW).
== END 2016-09-05 13:45 | disposition home or self-care (01) ==
LOC: ED SRH 11:03
DX: J45.41 Moderate persistent asthma with (acute) exacerbation (principal); F12.180 Cannabis abuse with cannabis-induced anxiety disorder; Z79.899 Other long term (current) drug therapy
CPT/HCPCS: 90004; 90100; 90616; 90617; 91320; 92530; 92610; 92720; 92760; 92761; 92762; 92763; 92764; 92765; 92766; 92767; 94060; 95059